=== PATIENT | male | born 1995 | race Two or more races ===

== ENCOUNTER 2024-03-29 01:04 | Emergency (ER) | payer SELFPAY ==
[~2024-03-29] VITALS: Ht 188 cm; Wt 91.0 kg
[2024-03-29 01:11] VITALS: BP 147/91; PULSE 100; RESP 16; O2SAT 98
== END 2024-03-29 02:03 | disposition left against medical advice (07) ==
LOC: ER 01:04
DX: R00.2 Palpitations (principal); R00.1 Bradycardia, unspecified; Z53.21 Procedure and treatment not carried out due to patient leaving prior to being seen by health care provider
CPT/HCPCS: 93005